=== PATIENT | female | born 1985 | race Caucasian/White ===

== ENCOUNTER 2018-11-03 09:55 | Emergency (ER) | payer SELFPAY ==
[~2018-11-03] VITALS: Ht 157.5 cm; Wt 123.6 kg
[2018-11-03 09:56] VITALS: BP 133/80
--- NOTE | 2018-11-03 11:27 | NUR ---
PT GIVEN DC INSTRUCTIONS, PT GIVEN FITTED CRUTCHES BY EDT, AIR STIRRUP APPLIED TO RIGHT FOOT/ANKLE BY EDT. PT REQUESTS WC TO DC, PT GIVEN WC ESCORT TO DC. NADN AT DC.
== END 2018-11-03 11:28 | disposition home or self-care (01) ==
LOC: ED 10:29
DX: S93.491A Sprain of other ligament of right ankle, initial encounter (principal); X50.1XXA Overexertion from prolonged static or awkward postures, initial encounter; Y93.89 Activity, other specified; Y92.830 Public park as the place of occurrence of the external cause; Y99.8 Other external cause status
CPT/HCPCS: 29515; 99283

== ENCOUNTER 2019-02-02 19:53 | Emergency (ER) | payer MEDICAID ==
[~2019-02-02] VITALS: Ht 160 cm; Wt 121.0 kg
[2019-02-02 21:43] VITALS: BP 100/62
== END 2019-02-02 22:44 | disposition home or self-care (01) ==
LOC: ED 21:00
DX: R10.13 Epigastric pain (principal); R11.2 Nausea with vomiting, unspecified; F17.200 Nicotine dependence, unspecified, uncomplicated
CPT/HCPCS: 36415; 76700; 80053; 81001; 83690; 84703; 85025; 87086; 96374; 96375; 99284; J2270; J2405

== ENCOUNTER 2019-07-09 04:13 | Inpatient (IN) | payer MEDICAID ==
[~2019-07-09] VITALS: Ht 157.5 cm; Wt 118.7 kg
[2019-07-09] MEDS ORDERED: POLYETHYLENE GLYCOL 17 GM PACKET PO PRN (05:30)
[2019-07-09] MEDS ORDERED: BISACODYL 10 MG SUPP PR PRN (05:30)
[2019-07-09] MEDS ORDERED: ONDANSETRON ODT 4 MG PO PRN (05:30)
[2019-07-09] MEDS ORDERED: DOCUSATE 100 MG CAPSULE PO PRN (05:30)
[2019-07-09 05:51] VITALS: BP 138/88
[2019-07-09] MEDS ORDERED: PLEASE ENTER HEIGHT AND WEIGHT MC SCH (06:30)
[2019-07-09 07:00] LABS: CHOL/HDL RATIO 7.1; FREE T4 (FREE THYROXINE) 1.16 ng/dL (0.76-1.46); LDL/HDL RATIO 4.6 (0.5-3.0)
[2019-07-09 07:32] VITALS: BP 103/67
[2019-07-09 10:17] LABS: BASOPHILS # (AUTO) 0.02 x10^3/uL (0-0.1); BASOPHILS % (AUTO) 0 % (0-1); EOSINOPHILS % (AUTO) 2 % (1-7); LYMPHOCYTES # (AUTO) 2.21 x10^3/uL (1-3.4); LYMPHOCYTES % (AUTO) 19 % (22-44); MD NO; MEAN CORPUSCULAR HEMOGLOBIN 29.1 pg (27.0-34.8); MEAN CORPUSCULAR HGB CONC 32.5 g/dL (32.4-35.8); MEAN CORPUSCULAR VOLUME 89.6 fL (80-100); MEAN PLATELET VOLUME 8.8 fL (7.4-10.4); MONOCYTES # (AUTO) 0.41 x10^3/uL (0.2-0.8); MONOCYTES % (AUTO) 4 % (2-9); NEUTROPHILS # (AUTO) 8.59 x10^3/uL (1.8-6.8); NEUTROPHILS % (AUTO) 75 % (42-75); PLATELET COUNT 338 x10^3/uL (130-400); RED BLOOD COUNT 4.59 x10^6/uL (3.82-5.3); RED CELL DISTRIBUTION WIDTH 15.9 % (9.6-15.2)
[2019-07-09 10:43] LABS: ANION GAP 10 mmol/L (5-15); CHLORIDE 105 mmol/L (98-107); CREATININE 0.69 mg/dL (0.55-1.02)
[2019-07-09] MEDS: SERTRALINE 50MG TABLET PO SCH (17:29)
[2019-07-09 18:27] LABS: MICROSCOPIC AUTO
[2019-07-09 18:36] LABS: CULTURE INDICATED? YES
[2019-07-09 19:55] VITALS: BP 125/83
[2019-07-09] MEDS: CARBAMAZEPINE 200 MG TABLET PO SCH (20:13)
[2019-07-09] MEDS: QUETIAPINE 25MG TABLET PO SCH (20:13)
[2019-07-10 07:14] VITALS: BP 136/85
[2019-07-10] MEDS: SERTRALINE 50MG TABLET PO SCH (08:30)
[2019-07-10] MEDS: ACETAMINOPHEN 325 MG TABLET PO PRN ×2 (08:58→20:33)
[2019-07-10 19:00] VITALS: BP 111/76
[2019-07-10] MEDS: CARBAMAZEPINE 200 MG TABLET PO SCH (20:33)
[2019-07-10] MEDS: QUETIAPINE 25MG TABLET PO SCH (20:33)
[2019-07-11 07:13] VITALS: BP 124/83
[2019-07-11] MEDS: SERTRALINE 50MG TABLET PO SCH (08:55)
[2019-07-11] MEDS: ACETAMINOPHEN 325 MG TABLET PO PRN ×2 (08:55→19:40)
[2019-07-11 19:37] VITALS: BP 131/83
[2019-07-11] MEDS: CARBAMAZEPINE 200 MG TABLET PO SCH (19:40)
[2019-07-11] MEDS: QUETIAPINE 25MG TABLET PO SCH (19:40)
[2019-07-12 07:29] VITALS: BP 129/81
[2019-07-12] MEDS: SERTRALINE 50MG TABLET PO SCH (08:37)
[2019-07-12] MEDS: ACETAMINOPHEN 325 MG TABLET PO PRN ×2 (11:34→20:11)
[2019-07-12] MEDS ORDERED: LIDOCAINE 4% CREAM 15GM TUBE TP PRN (14:30)
[2019-07-12] MEDS ORDERED: LIDOCAINE 4% CREAM 5GM TUBE TP PRN (14:30)
[2019-07-12 19:28] VITALS: BP 133/85
[2019-07-12] MEDS: CARBAMAZEPINE 200 MG TABLET PO SCH (20:10)
[2019-07-12] MEDS: QUETIAPINE 25MG TABLET PO SCH (20:11)
[2019-07-13 07:35] VITALS: BP 140/80
[2019-07-13] MEDS: ACETAMINOPHEN 325 MG TABLET PO PRN ×2 (08:12→19:52)
[2019-07-13] MEDS: SERTRALINE 50MG TABLET PO SCH (08:12)
[2019-07-13 19:43] VITALS: BP 127/81
[2019-07-13] MEDS: CARBAMAZEPINE 200 MG TABLET PO SCH (19:52)
[2019-07-13] MEDS: QUETIAPINE 25MG TABLET PO SCH (19:52)
[2019-07-14 07:36] VITALS: BP 134/80
[2019-07-14] MEDS: SERTRALINE 50MG TABLET PO SCH (08:30)
[2019-07-14] MEDS: ACETAMINOPHEN 325 MG TABLET PO PRN (08:30)
[2019-07-14] MEDS ORDERED: SERT50TA28 PO (14:17)
[2019-07-14] MEDS ORDERED: QUET25TA7 PO (14:17)
[2019-07-14 19:58] VITALS: BP 126/83
[2019-07-14] MEDS: CARBAMAZEPINE 200 MG TABLET PO SCH (20:28)
[2019-07-14] MEDS: QUETIAPINE 25MG TABLET PO SCH (20:28)
[2019-07-15 07:31] VITALS: BP 137/85
[2019-07-15] MEDS: ACETAMINOPHEN 325 MG TABLET PO PRN (08:12)
[2019-07-15] MEDS: SERTRALINE 50MG TABLET PO SCH (08:12)
== END 2019-07-15 09:00 | disposition home or self-care (01) | DRG 751 ==
LOC: 3E 05:05
PROVIDERS: ADMIT Psychiatry & Neurology Psychosomatic Medicine; ATTEND Psychiatry & Neurology Psychosomatic Medicine
DX: F33.2 Major depressive disorder, recurrent severe without psychotic features (principal); Z68.42 Body mass index [BMI] 45.0-49.9, adult; E03.9 Hypothyroidism, unspecified; E66.9 Obesity, unspecified; Z88.0 Allergy status to penicillin; F17.200 Nicotine dependence, unspecified, uncomplicated; G80.9 Cerebral palsy, unspecified; I10 Essential (primary) hypertension; J45.909 Unspecified asthma, uncomplicated; X78.9XXA Intentional self-harm by unspecified sharp object, initial encounter; Z79.899 Other long term (current) drug therapy
CPT/HCPCS: 36415; 71045; 80048; 80061; 81001; 82607; 83036; 84439; 84443; 85025; 87086; 93005